=== PATIENT | female | born 1970 | race Caucasian/White ===

== ENCOUNTER 2017-07-14 09:21 | Day surgery (SDC) | payer MEDICAID ==
[~2017-07-14] VITALS: Ht 167.6 cm; Wt 61.7 kg
[2017-07-14] VITALS (10 sets, daily range): BP systolic 120–184; BP diastolic 69–97; PULSE 82–97; RESP 12–18; Ht 167.6 cm; Wt 61.7 kg
[2017-07-14] MEDS ORDERED: AMLO-147 PO (10:16)
[2017-07-14] MEDS ORDERED: HYDR12.58 PO (10:16)
[2017-07-14] MEDS ORDERED: CEFAZOLIN 2 GM/50 ML (PMX) 50 ML IVPB ONE (10:30)
[2017-07-14] MEDS ORDERED: SOD CHLORIDE 0.9% 1,000 ML IV ONE (10:30)
[2017-07-14 11:53] LABS: BASOPHILS % 0.4 % (0.0-2.0); EOSINOPHILS # 0.1 10^3/ul (0.0-0.5); HEMATOCRIT 41.6 % (37.0-47.0); HEMOGLOBIN 13.9 g/dl (12.0-16.0); LYMPHOCYTES # 1.4 10^3/ul (0.8-2.9); LYMPHOCYTES % 28.3 % (15.0-51.0); MEAN CORPUSCULAR HEMOGLOBIN 29.6 pg (29.0-33.0); MEAN CORPUSCULAR HGB CONC 33.4 g/dl (32.0-37.0); MEAN CORPUSCULAR VOLUME 88.5 fl (82.0-101.0); MEAN PLATELET VOLUME 11.2 fl (7.4-10.4); MONOCYTE # 0.4 10^3/ul (0.3-0.9); MONOCYTES % 7.7 % (0.0-11.0); NEUTROPHIL # 3.1 10^3/ul (1.6-7.5); NEUTROPHILS % 62.4 % (39.0-77.0); PLATELET COUNT 294 10^3/UL (140-415); RED CELL DISTRIBUTION WIDTH 13.2 % (11.5-14.5); WHITE BLOOD COUNT 4.9 10^3/ul (4.8-10.8)
[2017-07-14 11:55] LABS: INR 1.03; PROTIME 13.5 Sec (12.2-14.2); PT RATIO 1.1
[2017-07-14 11:56] LABS: PARTIAL THROMBOPLASTIN TIME 31.7 Sec (25.0-35.0)
[2017-07-14 12:00] LABS: ALBUMIN 4.5 g/dl (3.3-4.9); ALBUMIN/GLOBULIN RATIO 1.09; BILIRUBIN,INDIRECT 0.2 mg/dl (0-1.1); BILIRUBIN,TOTAL 0.2 mg/dl (0.2-1.3); TOTAL PROTEIN 8.6 g/dl (6.1-8.1)
[2017-07-14] MEDS ORDERED: BUPIVACAINE 0.5% (SDV) 30 ML INJ ONE (12:24)
[2017-07-14 12:25] LABS: CALCIUM 10.3 mg/dl (8.4-10.2); CREATININE 0.67 mg/dl (0.44-1.00); POTASSIUM 4.2 mmol/L (3.5-5.1)
[2017-07-14] MEDS ORDERED: LIDOCAINE 2% (SDV) 5 ML INJ ONE (12:41)
[2017-07-14] MEDS ORDERED: MEPERIDINE 100 MG INJ ONE (12:41)
[2017-07-14] MEDS ORDERED: ONDANSETRON 4 MG INJ ONE (12:41)
[2017-07-14] MEDS ORDERED: METOCLOPRAMIDE 10 MG INJ ONE (12:41)
[2017-07-14] MEDS ORDERED: CEFAZOLIN 1 GM INJ ONE (12:41)
[2017-07-14] MEDS ORDERED: PROPOFOL 20 ML ONE (12:41)
[2017-07-14] MEDS ORDERED: DIPHENHYDRAMINE 50 MG INJ IV PRN (13:00)
[2017-07-14] MEDS ORDERED: MIDAZOLAM 1 MG/ML 2 ML INJ IV PRN (13:00)
[2017-07-14] MEDS ORDERED: METOCLOPRAMIDE 10 MG INJ IV PRN (13:00)
[2017-07-14] MEDS ORDERED: OXYCODONE/ACETAMINOPHEN (5/325) TAB PO PRN ×2 (13:00)
[2017-07-14] MEDS ORDERED: LABETALOL HCL 20MG INJ IV PRN (13:00)
[2017-07-14] MEDS ORDERED: hydrALAzine 20 MG INJ IV PRN (13:00)
[2017-07-14] MEDS ORDERED: FENTAnyl 50 MCG/ML VIAL IV PRN ×3 (13:00)
[2017-07-14] MEDS ORDERED: ONDANSETRON 4 MG INJ IV PRN (13:00)
[2017-07-14] MEDS ORDERED: MEPERIDINE 25 MG INJ IV PRN (13:00)
[2017-07-14] MEDS ORDERED: HYDROmorphONE (0.2 MG/ML) 10ML SYG IV PRN ×3 (13:00)
[2017-07-14] MEDS ORDERED: EPHEDrine SULFATE 50 MG/5 ML SYG IV PRN (13:00)
[2017-07-14] MEDS ORDERED: HYDROCODONE/APAP (7.5/325) TAB PO PRN (13:30)
--- NOTE | 2017-07-14 13:30 | SIPON ---
Date/Time of Note Date/Time of Note DATE: 07/14/17 TIME: 13:27 Operative Report Preoperative Diagnosis Right breast mass Postoperative Diagnosis Same Operation/Procedure Performed Excision of right breast mass Surgeon see signature line visual merchandising assistant none Anesthesia: general Estimated blood loss: 0 - 10 ml's Transfusion Required none Specimen Right breast mass Grafts/Implants none Complications none MINGO LATHAM MD Jul 14, 2017 13:29
[2017-07-14] MEDS ORDERED: EPHEDrine SULFATE 50 MG/5 ML SYG ONE (14:14)
--- NOTE | 2017-07-14 15:32 | OPR ---
DATE OF OPERATION: 07/14/2017 SURGEON: Dominick Vargas M.D. OTOLOGIST: None. ANESTHESIOLOGIST: Michele Chandler MD. PREOPERATIVE DIAGNOSIS: Right breast mass. POSTOPERATIVE DIAGNOSIS: Right breast mass. OPERATION PERFORMED: Excision of right breast mass. ANESTHESIA: General. INDICATIONS FOR PROCEDURE: Patient is a 47-year-old female who presented with a palpable mass at approximately the 12 to 1 o'clock position of her right breast, adjacent to the nipple areolar border. 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 The patient was counseled as to the benefit of the biopsy. She consented and was scheduled for surgery. OPERATIVE PROCEDURE: The patient was brought to the operating theater and placed under general anesthesia. The right breast was prepped and draped in usual sterile fashion. A curvilinear incision was then made from approximately the 11 o'clock location to the 2 o'clock location. Subcutaneous tissue was dissected with cautery. Wide circumferential dissection of the palpable mass then took place. Specimen was elevated, transected, and sent for permanent pathologic analysis. Minimal bleeding was controlled with cautery. The skin was then reapproximated with a #5-0 PDS suture in subcuticular fashion and Dermabond was applied. The patient tolerated procedure well. Estimated blood loss was 10 mL. There were no complications and the patient was transported in stable condition to the recovery room where circumferential compression dressing was applied. Dictated By: Dominick Vargas MD /[email or web address]/[email or web address] /Document#: [id number]
== END 2017-07-14 15:10 | disposition home or self-care (01) ==
LOC: SDS 09:21 → SUR 09:21
PROVIDERS: ATTEND Surgery Surgical Oncology
DX: N60.21 Fibroadenosis of right breast (principal)
CPT/HCPCS: 19120; 80053; 85025; 85610; 85730; 88307; J0690; J2175; J2405; J2765; J7030; Z7512; Z7610